=== PATIENT | female | born 2000 | race Two or more races ===

== ENCOUNTER 2024-08-17 18:09 | Emergency (ER) | payer MEDICAID, SELFPAY ==
[2024-08-17 18:11] VITALS: BMI 32.9
[2024-08-17 18:35] VITALS: BP 105/69; PULSE 130; RESP 18; TEMP 36.8; O2SAT 97
--- NOTE | 2024-08-17 18:41 | EKG_ITS ---
[facility] Test Date: 2024-08-17 Pat Name: SARWAT ALRA Department: Room: - Gender: Female Director Of [employer]: : 2000 Requested By: Yan Denton ([facility]) Order Number: [id number] Reading MD: Yan Denton ([facility]) Measurements Intervals [place] Rate: 128 P: 41 WA: 143 QRS: 52 QRSD: 82 T: -8 QT: 334 QTc: 488 Interpretive Statements SINUS TACHYCARDIA POSSIBLE ANTERIOR MYOCARDIAL INFARCTION , PROBABLY OLD [30 ms Q WAVE IN V3/V4, OR R < 0.2 mV IN V4] ABNORMAL RHYTHM ECG No previous ECG available for comparison /store/S0/[id number].pdf
--- NOTE | 2024-08-17 18:43 | PD.EDRME ---
Rapid Medical Screening Exam [facility] Arrival date/time: 08/17/24 18:09 24-year-old female G2, approximately 32 weeks presents emergency department complaining of cough, body aches, and subjective fevers since last night. Patient reports no sick contacts but does work in healthcare setting as a medical advisor. Chief Complaint: Flu Like Symptoms Time Seen by Provider: 08/17/24 18:22 Vital signs: Vital Signs Temperature 98.3 F 08/17/24 18:35 Pulse Rate 130 H 08/17/24 18:35 Respiratory Rate 18 08/17/24 18:35 Blood Pressure 105/69 08/17/24 18:35 Pulse Oximetry (%) 97 08/17/24 18:35 Oxygen Delivery Method Room Air 08/17/24 18:35 Vital signs reviewed by provider: Yes
[2024-08-17] MEDS: ACETAMINOPHEN 325 MG TABLET 650 MG PO (20:00)
[2024-08-17 20:22] LABS: Collection Type, Urine Clean Catch
[2024-08-17 20:32] LABS: Bilirubin,Urine Negative (Negative); Blood,Urine 1+ (Negative); Clarity,Urine Clear (Clear/Hazy); Color,Urine Yellow (Lt Yel-Yel); Culture Indicated,Urine Not Indicated; Glucose, Urine 3+ (Negative); Ketones,Urine 1+ (Negative); Leukocyte Esterase,Urine Positive (Negative); Nitrite,Urine Negative (Negative); PH,Urine 6.5 (5.0-7.0); Protein,Urine 1+ (Neg - Trace); RBC,Urine 36 /hpf (0-3); Specific Gravity,Urine 1.041 (1.001-1.035); Squamous Epithelial Cell,Urine 4 /hpf (0-5); WBC,Urine 4 /hpf (0-5)
--- NOTE | 2024-08-17 20:39 | EDNOTE_ITS ---
<Statement entered by Vinita Feng MD - 08/18/24 04:28> As co-signing physician, I was present and available for consult prn. I concur with the plan and care as documented by the midlevel provider. Upper Respiratory Inf. RME/HPI General Chief Complaint: Flu Like Symptoms Stated Complaint: Body aches, fever off/on, cough x 1 day. Time Seen by Provider: 08/17/24 18:22 Source: patient Arrival date/time: 08/17/24 18:09 24-year-old female G2, approximately 32 weeks presents emergency department complaining of cough, body aches, and subjective fevers since last night. 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 Patient denies any abdominal pain, vaginal bleeding, abdominal cramping, dysuria, or any other associated symptoms. Mode of arrival: ambulatory Limitations: no limitations RME / HPI RME / HPI Narrative: 08/17/24 18:09 24-year-old female G2, approximately 32 weeks presents emergency department complaining of cough, body aches, and subjective fevers since last night. 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 Related Data Home Medications ?Medication ?Instructions ?Recorded ?Confirmed vit no.95-ferrous 1 tab PO QDAY 04/17/23 04/17/23 fumarate 28 mg-folic acid 800 mcg tablet () Previous Rx's ?Medication ?Instructions ?Recorded acetaminophen 500 mg capsule 500 mg PO Q6H PRN pain #30 caps 08/17/24 Allergies Allergy/AdvReac Type Severity Reaction Status Date / Time No Known Allergies Allergy Verified 04/17/23 03:56 Review of Systems Review of Systems Systems Reviewed: All systems reviewed, normal except as documented Constitutional Constitutional: Reports system reviewed and no additional complaints, except as documented, Reports body ache(s), Denies chills and Reports fever(s) Eyes Eyes: Reports system reviewed and no additional complaints, except as documented and Denies change in vision ENT Ears, Nose, Mouth, and Throat: Reports system reviewed and no additional complaints, except as documented, Denies disequilibrium, Denies dizziness, Denies sore throat and Denies vertigo Cardiovascular Cardiovascular: Reports system reviewed and no additional complaints, except as documented, Denies chest pain and Denies dyspnea Respiratory Respiratory: Reports system reviewed and no additional complaints, except as documented, Denies chest congestion, Reports cough and Denies dyspnea Gastrointestinal Gastrointestinal: Reports system reviewed and no additional complaints, except as documented, Denies abdominal pain, Denies nausea and Denies vomiting Musculoskeletal Musculoskeletal: Reports system reviewed and no additional complaints, except as documented, Denies abnormal gait and Denies arthralgias Integumentary/Breasts Skin/Breast: Reports system reviewed and no additional complaints, except as documented, Denies erythema, Denies rash and Denies wounds Neurologic Neurologic: Reports system reviewed and no additional complaints, except as documented, Denies abnormal gait, Denies disequilibrium, Denies dizziness and Denies vertigo Past Medical History Past Medical History NEUROLOGIC: Negative Neurological Disorders CARDIAC: Negative Cardiac Disorders or Congestive Heart Failure RESPIRATORY: Negative Chronic Obstructive Pulmonary Disease (COPD) GASTROINTESTINAL: Negative Gastrointestinal Disorders GENITOURINARY: Negative Genitourinary Disorders or Renal Disease REPRODUCTIVE: Negative Endometriosis, Genital Herpes, Gonorrhea, Pelvic Inflammatory Disease, Previous Pregnancies, Syphilis or Uterine Prolapse MUSCULOSKELETAL: Negative Musculoskeletal Disorders ENDOCRINE: Negative Endocrine Disorders, Diabetes Mellitus Type 1 or Diabetes Mellitus Type 2 HEMATOLOGIC: Negative Blood Disorders, Anemia, Leukemia, Hemophilia, Thalassemia, Sickle Cell Disease or Clotting Problems OTHER HISTORY: Negative Hospitalization, Autoimmune Disease, Down Syndrome, Developmental Delay, Shingles, Falls, Blood Transfusions, Blood Transfusion Reaction, Anesthesia Reactions, MRSA, VRSA, Vancomycin-Resistant Enterococci, Clostridium Difficile or Cancer Family History FAMILY HISTORY: Negative Family Psychiatric Problems, Family Respiratory Disorders, Family Cardiac Disorders, Family Gastrointestinal Problems, Family Cancer, Family Surgery or Family Anesthesia Reaction Surgical History SURGICAL: Positive Tonsillectomy; Negative Section Social History SMOKING STATUS: Never smoker ED Exam General Limitations: Present no limitations General appearance: Present alert and in no apparent distress Head Head exam: Present atraumatic Eye Eye exam: Present normal appearance, PERRL and EOMI ENT ENT exam: Present normal exam, normal oropharynx and mucous membranes moist Neck Neck exam: Present normal inspection, full ROM and trachea midline Chest Chest inspection: Present normal inspection and symmetric chest wall rise Respiratory Respiratory exam: Present normal lung sounds bilaterally Cardiovascular Cardiovascular exam: Present regular rate, normal rhythm and normal heart sounds Abdominal Exam Abdominal exam: Present soft and normal bowel sounds Extremities Exam Extremities exam: Present normal inspection and full ROM Back Exam Back exam: Present normal inspection and full ROM Neurological Exam Neurological exam: Present alert, oriented X3 and CN II-XII intact Psychiatric Psychiatric exam: Present normal affect and normal mood Skin Skin exam: Present warm, dry, intact and normal color Course Quality Measures none Orders Category Date Time Status Bedside COVID-19 Antigen Test NOW Care 08/17/24 18:41 Active Bedside Influenza A&B Antigen Test NOW Care 08/17/24 18:41 Completed EKG (ED ONLY) *Do not use* NOW Care 08/17/24 18:41 Completed EKG (ED Only) Stat Exams 08/17/24 18:41 Draft Urinalysis, C/S if Indicated Stat Lab 08/17/24 19:49 Completed Acetaminophen Tab [Tylenol Tab] Med 08/17/24 18:44 Discontinued 650 mg PO X1 ONE Vital Signs Vital signs: Vital Signs Temperature 98.3 F 08/17/24 18:35 Pulse Rate 130 H 08/17/24 18:35 Respiratory Rate 18 08/17/24 18:35 Blood Pressure 105/69 08/17/24 18:35 Pulse Oximetry (%) 97 08/17/24 18:35 Oxygen Delivery Method Room Air 08/17/24 18:35 97% room air within normal limits Procedures -ED EKG Interpretation #1: Date of EK08/17/24 Time of EK:49 Rate: 128 Interpretation: Interpreted by me EKG Impression: No acute ST-T changes, No ectopy, No ischemic changes, Sinus tachycardia and Normal QRS Upper Respiratory Infection MDM Narrative MDM Narrative:: 24-year-old female G2, approximately 32 weeks presents emergency department complaining of cough, body aches, and subjective fevers since last night. 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 Patient denies any abdominal pain, vaginal bleeding, abdominal cramping, dysuria, or any other associated symptoms. Patient appears nontoxic and is hemodynamically stable. Patient denies any vomiting reports has been tolerating fluids. Patient influenza positive. Patient instructed to have follow-up with primary care provider and LEVER TENDER in a couple days and return to emergency department for any worsening symptoms or as needed. Patient data External records reviewed:: [facility] previous records Clinical information provided by:: patient Social determinants that could affect healthcare access:: none Patient has the following chronic illnesses:: None How is presenting disease/condition affected by chronic disease/condition?: no chronic disease Evaluation data The following diagnostics were reviewed and interpreted by me:: lab results Lab and/or radiology exams considered but not ordered:: Ordered Interpretation Summary: Interpreted by me Medications / Prescriptions Medications or Prescriptions considered but not ordered:: Ordered Medication administrations:: Medication Administration History Discontinued Medications Acetaminophen (Acetaminophen 325 Mg Tablet) 650 mg PO X1 ONE Stop: 08/17/24 18:45 Last Admin: 08/17/24 20:00 Dose: 650 mg Documented By: CB Given Consultations Consultation(s) initiated? (list below): No Diagnosis Upper Respiratory Differential Diagnosis: upper respiratory infection, otitis media, sinusitis, viral infection, bronchitis, influenza and pharyngitis Most likely diagnosis given after review of the tests above:: Influenza Admission Indicated Admission indicated?: not indicated Admission Request Was there a request for admission?: No Disposition Plan Disposition Plan: Discharge Discharge Attestation Discharge Attestation: The patient and all family members were given an opportunity to ask questions and understood the discharge instructions. Discharge instructions specifically effects, indications for sooner follow up or return to the emergency department, and the expected course of current diagnosis. Patient condition: Stable Discharge Plan Plan Patient Disposition: HOME (Self Care) Disposition Comment: Stable Prescriptions/Referrals Prescriptions/Med Rec: New acetaminophen 500 mg capsule 500 mg PO Q6H PRN (Reason: pain) Qty: 30 0RF No Action PNV cmb#95-ferrous fumarate-FA [] 28 mg iron- 800 mcg Tablet 1 tab PO QDAY Referrals: Wolfgang Pérez MD [Primary Care Provider] - In 1 week Problem List Clinical Impression: Influenza Patient/Caregiver Discharge Instructions Discharge Activity: activity as tolerated Education Materials: ED Influenza (Adult) Additional Instructions: Drink plenty of fluids and get plenty of rest. Take Tylenol as needed for fever or pain. Follow-up with primary care provider and LEVER TENDER in 2 to 3 days. Return to emergency department for any worsening symptoms or as needed. Print Language: Romansh Stand Alone Forms: [place] Award Info., Patient Portal Info Letter PA/EQUIPMENT OPERATOR WAREHOUSE Supervising Physician PA/EQUIPMENT OPERATOR WAREHOUSE Supervising Physician: Dr. Feng
[2024-08-17 21:09] VITALS: BP 102/61; PULSE 125; RESP 18; TEMP 36.8; O2SAT 98
== END 2024-08-17 21:34 | disposition home or self-care (01) ==
PROVIDERS: Emergency Provider Emergency Medicine; PCP Family Medicine
DX: O98.513 Other viral diseases complicating pregnancy, third trimester (principal); J11.1 Influenza due to unidentified influenza virus with other respiratory manifestations; O99.891 Other specified diseases and conditions complicating pregnancy; R00.0 Tachycardia, unspecified; Z3A.32 32 weeks gestation of pregnancy
CPT/HCPCS: 81001; 87400; 87811; 93005; 99283; A9270

== ENCOUNTER 2024-10-01 13:05 | Outpatient (RCR) | payer MEDICAID, SELFPAY ==
--- NOTE | 2024-09-17 13:08 | XR_ITS ---
Examination: Biophysical profile, ultrasound Date and time of exam: September 17, 2024 at 1338 hrs. Indications: Diagnosis gestational diabetes Technique: Multiple transabdominal sonographic images of the pelvis abdomen obtained. Attention is directed to the breathing movement, gross body movement, amniotic fluid volume and tone. Findings: Amniotic fluid index 8.2 cm Total biophysical profile is 8 of 8. breathing movement is 2. Gross body movement is 2. tone is 2. Qualitative amniotic fluid volume is 2 Impression: Biophysical profile is 8 of 8.
[2024-09-17 14:04] VITALS: BP 113/67; PULSE 93; RESP 16; TEMP 36.6
[2024-09-17 15:28] VITALS: BP 113/67; PULSE 93; RESP 16; TEMP 36.6
--- NOTE | 2024-09-24 13:18 | XR_ITS ---
Examination: Biophysical profile, ultrasound Date and time of exam: September 24, 2024 1329 hours INDICATIONS: Diagnosis gestational diabetes Technique: Multiple transabdominal sonographic images of the pelvis abdomen obtained. Attention is directed to the breathing movement, gross body movement, amniotic fluid volume and tone. Findings: Amniotic fluid index 8.46 Total biophysical profile is 8 of 8. breathing movement is 2. Gross body movement is 2. tone is 2. Qualitative amniotic fluid volume is 2 Impression: Biophysical profile is 8 of 8.
[2024-09-24 14:03] VITALS: BP 103/64; PULSE 89; RESP 16; TEMP 36.7
--- NOTE | 2024-10-01 13:10 | XR_ITS ---
Examination: Biophysical profile, ultrasound Date and time of exam: October 01, 2024 1344 hrs. Indications: Diagnosis gestational diabetes Technique: Multiple transabdominal sonographic images of the pelvis abdomen obtained. Attention is directed to the breathing movement, gross body movement, amniotic fluid volume and tone. Findings: Amniotic fluid index 5.4 cm Total biophysical profile is 8 of 8. breathing movement is 2. Gross body movement is 2. tone is 2. Qualitative amniotic fluid volume is 2 Impression: Biophysical profile is 8 of 8.
[2024-10-01 14:30] VITALS: BP 104/56; PULSE 80; RESP 16; TEMP 36.9
== END 2024-10-01 23:59 | disposition home or self-care (01) ==
LOC: S4S1 13:05
PROVIDERS: PCP Family Medicine; Referring Provider Advanced Practice Midwife; Visit Provider Advanced Practice Midwife
DX: O24.410 Gestational diabetes mellitus in pregnancy, diet controlled (principal); O09.93 Supervision of high risk pregnancy, unspecified, third trimester; Z3A.39 39 weeks gestation of pregnancy
CPT/HCPCS: 59025; 76819

== ENCOUNTER 2024-10-01 15:15 | Inpatient (IN) | payer MEDICAID, SELFPAY ==
[2024-10-01] VITALS (68 sets, daily range): BP systolic 99–122; BP diastolic 55–77; PULSE 74–113; RESP 18; TEMP 36.6–36.9; O2SAT 91–99; BMI 31.6
--- NOTE | 2024-10-01 15:53 | PD.LDHP ---
Documentation for date of: 10/01/24 OB Labor/Induct. HPI History of Present Illness Chief complaint: scheduled NST/SENIA for A1GDM : 2 Para: 1 Term pregnancies: 1 pregnancies: 0 Living children: 1 History of Abortions: Spontaneous and Elective: 0 History of Vaginal deliveries: 1 History of sections: No History of : No Date of last menstrual period: 01/17/24 BIANCA: 10/08/24 Gestational Age (weeks): 39 Gestational Age (days): 0 Gestational age based on last menstrual period: 36 History of present illness: Patient presents for scheduled NST/SENIA in monitoring of A1GDM. NST is reactive, but SENIA is only 5.4cm and since she is 39wk, IOL is recommended. No regular/painful ctx. No LOF. No vaginal bleeding. Normal movement. History of Present Dating criteria: based on 2nd trimester US only Adequate Care: Yes Narrative: Hx of at 38wk 04/17/23, F [id number], GDM This , UTI treated in early with macrobid. BV treated 09/09 with flagyl. 1hr glucola 175, 3hr glucose test 81/191/176/125 Labs Maternal Blood Type: A Pos Labs: Negative: RPR, Hepatitis B, Rubella Titre, HIV, Chlamydia, Gonorrhea and Group Beta Strep Review of Systems Review of Systems Narrative Review of Systems: Review of Systems Systems Reviewed: All systems reviewed, normal except as documented Constitutional Constitutional: Denies body ache(s), Denies chills, Denies fever(s) and Denies headache(s) ENT Ears, Nose, Mouth, and Throat: Denies headache(s) and Denies vertigo Cardiovascular Cardiovascular: Denies chest pain, Denies palpitations, Denies dyspnea and Denies syncope Respiratory Respiratory: Denies cough, Denies dyspnea Gastrointestinal Gastrointestinal: Denies nausea and Denies vomiting Neurologic Neurologic: Denies convulsions, Denies headache(s), Denies other visual disturbances, Denies syncope and Denies vertigo Past Medical History Family History OTHER FAMILY HX: non-contributory Surgical History SURGICAL: Negative Section OTHER SURGICAL HX: tonsillectomy Social History SOCIAL: No ETOH, illicit drug use or tobacco. UDS early negative. Past Medical History Comments PMH COMMENT: Hx of GDM Hx of chlamydia 2022 Meds Home Medications and Allergies Home Medications ?Medication ?Instructions ?Recorded ?Confirmed ?Type vit no.95-ferrous 1 tab PO QDAY 04/17/23 10/01/24 History fumarate 28 mg-folic acid 800 mcg tablet () Allergies Allergy/AdvReac Type Severity Reaction Status Date / Time No Known Allergies Allergy Verified 10/01/24 15:42 OB Exam Physical Exam Vital signs: Vitals wnl, afebrile Narrative: General: well developed, well nourished, no acute distress, conversant Cardiac: normal heart rate Lungs: breathing without distress Abdomen: soft, gravid, non-tender, no rebound or guarding Extremities: no pain with palpation of calves Detailed Labor and Delivery Exam Dilation (cm): 4 Effacement (%): 75 Cervix position: posterior station: -2 Consistency: soft Presentation: Vertex Membranes: intact monitor accelerations: 15x15 monitor decelerations: None intermediate variability: Moderate (11-25) Contraction frequency (min): irregular OB Results Labs 10/01/24 15:45 Impressions Impression: Examination: Biophysical profile, ultrasound Date and time of exam: October 01, 2024 1344 hrs. Indications: Diagnosis gestational diabetes Technique: Multiple transabdominal sonographic images of the pelvis abdomen obtained. Attention is directed to the breathing movement, gross body movement, amniotic fluid volume and tone. Findings: Amniotic fluid index 5.4 cm Total biophysical profile is 8 of 8. breathing movement is 2. Gross body movement is 2. tone is 2. Qualitative amniotic fluid volume is 2 Impression: Biophysical profile is 8 of 8. OB Assessment & Plan Assessment and Plan (1) Oligohydramnios in grady in third trimester: Status: Acute Assessment and plan: Morris is a 24yo with SIUP at 39w0d who initially presented for scheduled NST/SENIA in monitoring of A1GDM. NST is reactive, but SENIA is only 5.4cm and since she is 39wk, IOL is recommended for oligohydramnios. SCE: /-2. Vitals wnl, benign exam. Reassuring assessment. EFW [id number] by Tessy care: Good care with [facility] PMhx/PNC significant for: -A1GDM -Rubella non-immune Plan: -Admit to L&D -Establish IV, routine labs -CEFM -GDM diet [id number], then clear liquid diet in labor -Newspaper Deliverer/consent re: iol and -GBS status: negative -Will initiate IOL with: pitocin -Anticipate -Safe to proceed Olya Zelaya MD (2) Gestational diabetes, diet controlled: Status: Acute (3) Rubella non-immune status, antepartum: Status: Acute (2) Gestational diabetes, diet controlled Qualifiers: Trimester: third trimester Qualified Code(s): O24.410 - Gestational diabetes mellitus in , diet controlled
[2024-10-01 16:19] LABS: Basophils % (Auto) 0 % (0-2.5); Eosinophils # (Auto) 0.1 Thou/mm3 (0.0-0.5); Eosinophils % (Auto) 1 % (0-10); Hematocrit 37.1 % (36.0-46.0); Hemoglobin 12.7 g/dL (12.0-16.0); Immature Granulocytes % (Auto) 1 % (0-0); Immature Granulocytes Auto 0.08 Thou/mm3 (0.00-0.00); Lymphocytes # (Auto) 2.3 Thou/mm3 (1.0-4.8); Lymphocytes % (Auto) 24 % (10-50); Mean Corpuscular HGB Conc 34.2 g/dl (31.0-37.0); Mean Corpuscular Hemoglobin 30.5 pg (25.0-35.0); Mean Corpuscular Volume 89 fL (80-100); Monocytes # (Auto) 0.9 Thou/mm3 (0.0-0.8); Monocytes % (Auto) 9 % (0-12); Neutrophils # (Auto) 6.2 Thou/mm3 (1.8-7.7); Neutrophils % (Auto) 65 % (37-80); Nucleated Red Blood Cell % 0 /100 WBC (0); Platelet Count 268 Thou/mm3 (140-440); RDW Standard Deviation 47.1 fL (36.4-46.3); Red Blood Count 4.17 Miln/mm3 (4.00-5.20); White Blood Count 9.6 Thou/mm3 (3.6-11.0)
[2024-10-01 17:07] LABS: Syphilis Nonreactive (Nonreactive)
[2024-10-01] MEDS: RINGERS LACTATED 1000 ML 1,000 ML 100 ML IV (17:27)
[2024-10-01] MEDS: OXYTOCIN in NS 30 units 30 UNIT/500 ML BAG IV (17:35)
[2024-10-02] VITALS (69 sets, daily range): BP systolic 99–137; BP diastolic 52–76; PULSE 66–115; RESP 15–20; TEMP 36.6–37.2; O2SAT 81–99
[2024-10-02] MEDS: RINGERS LACTATED 1000 ML 1,000 ML 100 ML IV (00:51)
[2024-10-02] MEDS: fentaNYL CIT INJ 50 mCg/ML AMP 2ML 100 MCG IV (06:38)
[2024-10-02] MEDS: MISOPROSTOL 200 mCg TABLET 800 MCG PR (07:30)
[2024-10-02] MEDS: OXYTOCIN in NS 20 units 20 UNIT/1,000 ML BAG 125 UNIT IV (07:35)
[2024-10-02] MEDS: LIDOCAINE HCL 1% 20 ML VIAL INFL (07:51)
--- NOTE | 2024-10-02 07:52 | PD.LDDELS ---
Data (Rojas) Data Hx Section: No : 2 Para: 1 Term: 1 : 0 : 0 Delivery Data (Rojas) Labor Data ROM Date: 10/02/24 ROM Time: 07:12 Rupture Type: AROM Amniotic Fluid: Clear Delivery Data Labor Onset Stage 1 Date: 10/02/24 Labor Onset Stage 1 Time: 00:47 Labor Onset Stage 2 Date: 10/02/24 Labor Onset Stage 2 Time: 07:12 Delivery Date: 10/02/24 Delivery Time: 07:13 Placenta Delivery Date: 10/02/24 Placenta Delivery Time: 07:15 Delivered by: Olya Zelaya Delivery nurse: Vero Lopez Delivery Method Delivery: Vaginal Delivery Type: Spontaneous Anesthesia Type Primary Anesthesia: None EBL Estimated blood loss (ml): 300 Additional Procedures Morris is a 24yo s/p uncomplicated at 39+wk after undergoing IOL for oligohydramnios discovered on routine antepartum testing for A1GDM, delivering at 0713 on 10/02/2024. On presentation, SCE was 4/75/-2. She progressed with pitocin augmentation to C/C/+2 at which point she began pushing. She declined epidural. With good maternal pushing efforts, 's head delivered OA and restituted MODESTO. Left anterior shoulder delivered easily followed by posterior shoulder and corpus. Infant had spontaneous cry and was vigorous. Apgars 8/9 . placed on maternal abdomen where nose/mouth were suctioned and infant dried/stimulated. After approximately 2 minutes, cord was clamped x2 and cut by FOB. Cord blood collected for typing. While cord was being clamped/cut, placenta self-delivered spontaneously and intact with 3 vessel centrally inserted cord. Bimanual massage performed and IV pitocin given per protocol with fundus then firm at u-2cm and hemostasis noted. Inspection of perineum and vagina revealed small left labial laceration and a very small 1st degree midline laceration which were repaired in routine fashion with 2-0 vicryl after anesthetizing with 1% lidocaine- total reapproximation and hemostasis achieved. There was a small 2-3cm vaginal cyst on the right sidewall which was drained until flat, milky white fluid expressed. 800mcg cytotec placed IN for prophylaxis against future bleeding. All counts correct x2. Mom and infant were doing well when I left the room. Olya Zelaya MD Complications Complications: none [place] Data (Rojas) [place] Data Gender: Female Infant Weight Grams: 3340 1 Minute Total: 8 5 Minute Total: 9
[2024-10-02] MEDS: DOCUSATE SOD 100 MG CAPSULE PO ×2 (09:25→20:40)
[2024-10-02] MEDS: ACETAMINOPHEN 325 MG TABLET 650 MG PO (09:25)
[2024-10-02] MEDS: PRENATAL VITAMIN/FE FUM/FA TABLET 1 TAB PO (10:10)
[2024-10-02] MEDS: BENZO/LANO/ALOE (Dermoplast) 60 GM CAN 1 SPRAY TOP (10:14)
[2024-10-02 13:32] LABS: Basophils % (Auto) 0 % (0-2.5); Eosinophils % (Auto) 0 % (0-10); Hematocrit 32.1 % (36.0-46.0); Hemoglobin 11.1 g/dL (12.0-16.0); Immature Granulocytes % (Auto) 1 % (0-0); Immature Granulocytes Auto 0.11 Thou/mm3 (0.00-0.00); Lymphocytes # (Auto) 1.8 Thou/mm3 (1.0-4.8); Lymphocytes % (Auto) 12 % (10-50); Mean Corpuscular HGB Conc 34.6 g/dl (31.0-37.0); Mean Corpuscular Volume 87 fL (80-100); Monocytes # (Auto) 1.1 Thou/mm3 (0.0-0.8); Monocytes % (Auto) 8 % (0-12); Neutrophils # (Auto) 11.1 Thou/mm3 (1.8-7.7); Neutrophils % (Auto) 79 % (37-80); Nucleated Red Blood Cell % 0 /100 WBC (0); Platelet Count 242 Thou/mm3 (140-440); RDW Standard Deviation 46.3 fL (36.4-46.3); White Blood Count 14.2 Thou/mm3 (3.6-11.0)
[2024-10-02] MEDS: IBUPROFEN TAB 400 MG TABLET 800 MG PO (16:16)
--- NOTE | 2024-10-02 22:10 | PC.NURSE ---
2013 Pt requested formula and expressed that she would like to combo feed because she feels that the baby is not eating enough. Education was provided to her about how to know if the baby is eating enough. Pt was was reassures that the baby was eating enough and BG levels were good. Education on the benefits of breast milk was provided. pt still requested formula and stated she wants to give her breast a break. She requested a pump as well. Education on formula feeding and how to use the breast pump was provided.
[2024-10-03 00:25] VITALS: BP 105/68; PULSE 74; RESP 18; TEMP 36.3; O2SAT 97
[2024-10-03] MEDS: IBUPROFEN TAB 400 MG TABLET 800 MG PO (00:26)
[2024-10-03 05:31] VITALS: BP 105/71; PULSE 70; RESP 16; TEMP 36.7; O2SAT 96
--- NOTE | 2024-10-03 06:05 | PC.NURSE ---
0531 pt was educated on the benefit of receiving the MMR vaccine, pt declined vaccine.
--- NOTE | 2024-10-03 07:11 | PD.LDDS ---
DS: Providers Provider Date of admission: 10/01/24 15:15 Primary care physician: Physician No Primary/Family Admitting Provider: Olya Zelaya MD Attending Provider on Admission: Olya Zelaya MD Consults: 10/02/24 07:50 Referral Routine Comment: Attending Provider on DC: Olya Zelaya MD Discharging Provider: Olya Zelaya MD DS: Diagnosis Discharge Diagnosis (1) Vaginal delivery: Status: Acute (2) Oligohydramnios in grady in third trimester: Status: Acute (3) Gestational diabetes, diet controlled: Status: Acute (4) Rubella non-immune status, antepartum: Status: Acute (5) care and examination immediately after delivery: Status: Acute Problem List Completed Was Problem List Reviewed/Reconciled?: Yes Summary/Hosp Course Brief History: Patient presents for scheduled NST/SENIA in monitoring of A1GDM. NST is reactive, but SENIA is only 5.4cm and since she is 39wk, IOL is recommended. No regular/painful ctx. No LOF. No vaginal bleeding. Normal movement. She is doing well on PPD1. She has had an uncomplicated course, meeting all milestones and feels ready for discharge home. She is ambulating without lightheadedness, tolerating regular diet no n/v, spontaneously voiding without issue. She has no chest pain or shortness of breath. No fevers or chills. Minimal, appropriate discomfort. Vitals normal, benign exam. Hemodynamically stable with no evidence of infection. PP Hgb 11.1. She will need a 6-12wk glucose test to follow up gestational diabetes. Status at Discharge Functional status at discharge: independent ambulation Overall status at discharge: patient is back to baseline Time Spent with Patient Time attestation: Total time spent providing and/or coordinating discharge services: Exam Vital Signs Temp Pulse Resp BP Pulse Ox O2 Del Method 98.1 F 70 16 105/71 96 Room Air 10/03/24 05:31 10/03/24 05:31 10/03/24 05:31 10/03/24 05:31 10/03/24 05:31 10/03/24 05:31 Narrative Exam General: well developed, well nourished, no acute distress, conversant Cardiac: normal heart rate Lungs: breathing without distress Abdomen: soft, post-gravid, non-tender, no rebound or guarding, Fundus firm at u-3cm. Extremities: no pain with palpation of calves, trace edema of BLE Discharge Plan Plan Patient Disposition: HOME (Self Care) Patient condition on transfer: Stable Prescriptions/Referrals Prescriptions/Med Rec: New docusate sodium 100 mg Capsule 100 mg PO BID 10 Days Qty: 20 0RF ibuprofen 800 mg tablet 800 mg PO Q8H PRN (Reason: See Comments) 10 Days Qty: 30 0RF Continued PNV [id number] fumarate-FA [] 28 mg iron- 800 mcg Tablet 1 tab PO QDAY Referrals: No Primary/Family,Physician [Primary Care Provider] - Patient/Caregiver Discharge Instructions Discharge Activity: activity as tolerated and other Other Discharge Activity Instructions:: vaginal rest and no heavy lifting more than 10 pounds for 6 weeks Other Discharge Diet Instructions: regular diet Education Materials: After a Vaginal Print Language: [place] Activity Restrictions/Additional Instructions: follow up in 4 weeks for visit, call clinic to schedule appointment Stand Alone Forms: [place] Award Info., Patient Portal Info Letter Discharge Order Discharge Orders: Discharge (Routine); Ordered 10/03/24 Ordered By: Olya Zelaya Planned Discharge Date 10/03/24 (3) Gestational diabetes, diet controlled Qualifiers: Trimester: third trimester Qualified Code(s): O24.410 - Gestational diabetes mellitus in , diet controlled
[2024-10-03 07:30] VITALS: BP 104/67; PULSE 70; RESP 16; TEMP 36.3; O2SAT 96
[2024-10-03] MEDS: DOCUSATE SOD 100 MG CAPSULE PO (07:56)
[2024-10-03] MEDS: PRENATAL VITAMIN/FE FUM/FA TABLET 1 TAB PO (07:57)
[2024-10-03] MEDS: INFLUENZA VIRUS QUADRIVALENT 0.5 ML SYRINGE IMi (10:48)
== END 2024-10-03 11:22 | disposition home or self-care (01) | DRG 560 ==
LOC: S4SX 10-02 07:20 → S4NX 10-02 10:10
PROVIDERS: Admitting Provider Obstetrics & Gynecology; Visit Provider Obstetrics & Gynecology
DX: O24.420 Gestational diabetes mellitus in childbirth, diet controlled (principal); O41.03X0 Oligohydramnios, third trimester, not applicable or unspecified; O34.83 Maternal care for other abnormalities of pelvic organs, third trimester; N89.8 Other specified noninflammatory disorders of vagina; Z37.0 Single live birth; Z3A.39 39 weeks gestation of pregnancy; O70.0 First degree perineal laceration during delivery; Z23 Encounter for immunization; Z78.9 Other specified health status
CPT/HCPCS: 36415; 59409; 85025; 86780; 86850; 86900; 86901; 90686; 94762; J2590; J3010; J3490; J7120; S0191; A9270; J9060